=== PATIENT | female | born 1945 | race Caucasian/White ===

== ENCOUNTER 2022-12-07 01:41 | Emergency (ER) | payer MEDICARE, SELFPAY ==
[2022-12-07] VITALS (22 sets, daily range): BP systolic 82–125; BP diastolic 44–104; PULSE 62–90; RESP 9–20; TEMP 36.3–36.8; O2SAT 93–100
--- NOTE | ~2022-12-07 | XR_ITS ---
XR hip RT min 2V 12/07/2022 04:53 Indication: Right hip pain. Post reduction. Procedure: 2 views right hip Comparison: 12/07/2022 Findings: There is a right total hip arthroplasty, well seated. No evidence for fracture or subluxati on. Impression: 1: Interval reduction of right hip arthroplasty, now in appropriate alignment. Reviewed, dictated and finalized at location A. Impression: 1: Interval reduction of right hip arthroplasty, now in appropriate alignment.
--- NOTE | ~2022-12-07 | XR_ITS ---
XR hip RT 2V w AP pelvis 12/07/2022 02:47 Indication: Right hip arthroplasty dislocation Procedure: 3 views right hip Comparison: No prior studies for comparison. Findings: There is a right hip arthroplasty. The femoral component is dislocated superiorly and poste riorly with respect to the acetabular cup. No surrounding fracture. Pelvic rings are intact. Impression: 1: Dislocation of right femoral components of total hip arthroplasty. Reviewed, dictated and finalized at location A. Impression: 1: Dislocation of right femoral components of total hip arthroplasty.
--- NOTE | 2022-12-07 01:55 | PC.NURSE ---
Pt presents to the ED with c/o of right hip pain. Pt states she has a history of hip replacement in Jul. and states she has dislocated her hip already since her surgery and fears that it happened again. pt also states she had a right knee replacement in 2014. Pt states her pain is a 10/10 and cannot bear weight on it. Pt does not have noticeable bruising on the right hip. This RN noted the right foot on the patient was shorter than the left foot. Pt states this is not normal for her.
[2022-12-07] MEDS: HYDROmorphone HCL INJ (*CRX) 1 MG/ML SYR IV PUSH (02:43)
--- NOTE | 2022-12-07 04:14 | ED.GENADULT ---
HPI - General Adult General Chief complaint: Fall Stated complaint: hip pain Time Seen by Provider: 12/07/22 01:54 History of Present Illness HPI narrative: Patient is a 77-year-old female who presents the emergency department with chief complaint of right hip pain. Patient reports that she has prior history of hip replacement and has dislocated her prosthesis before patient reports that she is in town visiting and was in the hotel and felt a pop in her right hip and reports that her right leg was shortened and rotated patient reports this feels exactly like whenever she has dislocated her prosthesis in the past. Patient reports the last time she dislocated it required several attempts and she has been sore since the previous attempt. The patient reports no prior cage or other additional adjunct device has been placed in her hardware Related Data Allergies Allergy/AdvReac Type Severity Reaction Status Date / Time amoxicillin [From Augmentin] Allergy Unknown Verified 12/07/22 02:17 clavulanic acid Allergy Unknown Verified 12/07/22 02:17 [From Augmentin] doxycycline Allergy Unknown Verified 12/07/22 02:20 gabapentin Allergy Unknown Verified 12/07/22 02:17 latex Allergy Unknown Verified 12/07/22 02:18 meloxicam Allergy Unknown Verified 12/07/22 02:20 midazolam [From Versed] Allergy Unknown Verified 12/07/22 02:18 Review of Systems Review of Systems: A 10 system review of systems was completed on the patient and is negative except for what is stated in the HPI. Nursing and ancillary documentation was reviewed. Exam Narrative: GENERAL: Well-appearing, well-nourished, and in no acute distress. HEAD: Normocephalic, atraumatic. EYES: PERRLA and EOMI. ENT: Nares clear, no rhinorrhea or epistaxis. Mucous membranes moist. NECK: Supple. CHEST: Clear to auscultation. No respiratory distress. HEART: Regular rate and rhythm. No murmur heard. Normal peripheral pulses. ABDOMEN: Soft, nontender, nondistended, normal active bowel sounds. EXTREMITIES: Right lower extremity shortened and tender in the right hip. No edema. SKIN: Warm, dry, no rash. NEURO: No focal deficits. Alert and oriented x3. PSYCH: Normal mood and affect. Course Vital Signs Vital signs: Vital Signs Temperature 36.8 C 12/07/22 01:40 Pulse Rate 64 12/07/22 01:40 Respiratory Rate 18 12/07/22 01:40 Blood Pressure 91/61 L 12/07/22 01:40 Pulse Oximetry 100 12/07/22 01:40 Oxygen Delivery Room Air 12/07/22 01:40 Temperature 36.8 C 12/07/22 01:40 Pulse Rate 70 12/07/22 03:34 Respiratory Rate 12 12/07/22 03:34 Blood Pressure 106/49 L 12/07/22 03:34 Pulse Oximetry 93 12/07/22 03:34 Oxygen Delivery Room Air 12/07/22 01:40 Procedures Orthopedic Joint Reduction Joint #1: Orthopedic Joint Reduction Date: 12/07/22 Orthopedic Joint Reduction Time: 04:51 Time Out Performed: Yes Side: right Joint Reduction Location: hip Analgesia: procedural sedation Pre-Procedure Neuro Vascular Exam: normal Local Anesthesia: none Shoulder Technique Used (if applicable): other Technique used: other ([employer]) Post-reduction neuro exam: intact Post-reduction vascular: intact Post Reduction X-Ray Obtained: Yes Post Reduction X-Ray Results: reduced Patient Tolerated Procedure: well and no complications Procedural Sedation Procedural Sedation #1: Presedation Evaluation: Patient is awake alert in no acute distress GENERAL: Well-appearing, well-nourished, and in no acute distress. HEAD: Normocephalic, atraumatic. EYES: PERRLA and EOMI. ENT: Nares clear, no rhinorrhea or epistaxis. Mucous membranes moist. NECK: Supple. CHEST: Clear to auscultation. No respiratory distress. HEART: Regular rate and rhythm. No murmur heard. Normal peripheral pulses. ABDOMEN: Soft, nontender, nondistended, normal active bowel sounds. EXTREMITI
[2022-12-07] MEDS: SODIUM CHLORIDE 0.9% IV 1,000 ML 999 ML IV CONT (04:24)
[2022-12-07] MEDS: fentaNYL CITRATE INJ (*CRX) 100 MCG/2 ML VIAL 50 MCG IV PUSH (04:35)
[2022-12-07] MEDS: PROPOFOL IV EMULSION 200 MG/20 ML VIAL 80 MG IV PUSH (04:35)
== END 2022-12-07 06:21 | disposition home or self-care (01) ==
PROVIDERS: Emergency Provider Emergency Medicine
DX: T84.020A Dislocation of internal right hip prosthesis, initial encounter (principal); X50.0XXA Overexertion from strenuous movement or load, initial encounter
CPT/HCPCS: 27265; 73502; 96374; 96375; 99285; J1170; J2704; J3010; J7030